=== PATIENT | male | born 1990 | race Native Hawaiian/Other Pacific Islander ===

== ENCOUNTER 2016-11-01 14:49 | Emergency (ER) | payer OTHER ==
[~2016-11-01] VITALS: Ht 182.9 cm; Wt 68.0 kg
[2016-11-01 15:29] VITALS: BP 128/78; TEMP 98.4
== END 2016-11-01 16:30 | disposition home or self-care (01) ==
LOC: ED 14:49
DX: K64.8 Other hemorrhoids (principal)
CPT/HCPCS: 99282

== ENCOUNTER 2016-11-05 15:26 | Emergency (ER) | payer OTHER ==
[~2016-11-05] VITALS: Ht 177.8 cm; Wt 68.0 kg
[2016-11-05 15:43] VITALS: TEMP 98.4
[2016-11-05 16:02] LABS: PLATELET COUNT 247 K/uL (142-355)
[2016-11-05 16:07] LABS: POTASSIUM 3.5 mmol/L (3.6-5.2); SODIUM 136 mmol/L (136-145)
[2016-11-05 16:12] LABS: PARTIAL THROMBOPLASTIN TIME 24.7 SECONDS (24.5-33.6)
[2016-11-05 17:45] VITALS: BP 129/77
== END 2016-11-05 17:53 | disposition home or self-care (01) ==
LOC: ED 15:26
DX: N20.1 Calculus of ureter (principal); N23 Unspecified renal colic; R31.9 Hematuria, unspecified; R00.1 Bradycardia, unspecified; F15.10 Other stimulant abuse, uncomplicated; F14.10 Cocaine abuse, uncomplicated
CPT/HCPCS: 36415; 80053; 80307; 81000; 82550; 84484; 85027; 85610; 85730; 93005; 96360; 96361; 96375; 99284; G0479; J0461; J1885; J2405

== ENCOUNTER 2018-06-21 20:38 | Emergency (ER) | payer OTHER ==
[~2018-06-21] VITALS: Ht 175.3 cm; Wt 77.1 kg
[2018-06-21 22:27] VITALS: BP 113/72; TEMP 98.2
== END 2018-06-21 22:28 | disposition home or self-care (01) ==
LOC: ED 20:38
DX: S43.401A Unspecified sprain of right shoulder joint, initial encounter (principal); X50.9XXA Other and unspecified overexertion or strenuous movements or postures, initial encounter
CPT/HCPCS: 99282; J1885

== ENCOUNTER 2019-09-17 14:11 | Emergency (ER) | payer OTHER ==
[~2019-09-17] VITALS: Ht 175.3 cm; Wt 77.1 kg
[2019-09-17 15:30] LABS: PLATELET COUNT 226 K/uL (142-355)
[2019-09-17 16:31] VITALS: BP 137/83; TEMP 98.9
== END 2019-09-17 16:31 | disposition home or self-care (01) ==
LOC: ED 14:11
PROVIDERS: Family Medicine
DX: J02.9 Acute pharyngitis, unspecified (principal); J06.9 Acute upper respiratory infection, unspecified; F17.210 Nicotine dependence, cigarettes, uncomplicated
CPT/HCPCS: 80053; 85027; 87502; 87651; 99283